=== PATIENT | male | born 1985 | race Two or more races ===

== ENCOUNTER 2018-02-24 22:12 | Emergency (ER) | payer OTHER ==
[~2018-02-24] VITALS: Ht 157.5 cm; Wt 75.4 kg
[2018-02-24] MEDS ORDERED: MORPHINE SULFATE 4 MG/ML, 1ML IVPush PRN (23:00)
[2018-02-24] MEDS ORDERED: FAMOTIDINE 20 MG/2 ML IVP ONE (23:00)
[2018-02-24] MEDS ORDERED: DICYCLOMINE 10 MG/ML, 2ML IM ONE (23:00)
[2018-02-24] MEDS ORDERED: SODIUM CHLORIDE FLUSH 10ML SYR IVF ONE (23:00)
[2018-02-24] MEDS ORDERED: PROMETHAZINE 25 MG/ML, 1ML IM ONE (23:00)
[2018-02-24] MEDS ORDERED: SODIUM CHLORIDE 0.9% 1,000ML IVBOLUS ONE (23:00)
[2018-02-24] MEDS ORDERED: ONDANSETRON 2MG/ML, 2ML IVPush ONE (23:00)
[2018-02-24 23:26] LABS: CULTURE INDICATED? YES; MICROSCOPIC INDICATED
[2018-02-24] MEDS ORDERED: ONDANSETRON 2MG/ML, 2ML ONE (23:29)
[2018-02-24] MEDS ORDERED: DICYCLOMINE 10 MG/ML, 2ML ONE (23:30)
[2018-02-24] MEDS ORDERED: FAMOTIDINE 20 MG/2 ML ONE (23:30)
[2018-02-24] MEDS ORDERED: PROMETHAZINE 25 MG/ML, 1ML ONE (23:30)
[2018-02-24 23:31] LABS: ALANINE AMINOTRANSFERASE 173 U/L (12-78); ALBUMIN 2.5 g/dL (3.4-5.0); ANION GAP 6 mmol/L (5-15); CALCIUM 8.2 mg/dL (8.5-10.1); CHLORIDE 106 mmol/L (98-107)
[2018-02-24 23:33] LABS: ALKALINE PHOSPHATASE 88 U/L (45-117); BILIRUBIN,TOTAL 0.5 mg/dL (0.2-1.0); TOTAL PROTEIN 6.9 g/dL (6.4-8.2)
[2018-02-24 23:41] VITALS: BP 102/67
[2018-02-24 23:43] LABS: MD SCAN; MEAN CORPUSCULAR HEMOGLOBIN 29.3 pg (27.5-34.5); MEAN CORPUSCULAR HGB CONC 34.1 g/dL (33.2-36.2); MEAN CORPUSCULAR VOLUME 85.9 fL (81-97); MEAN PLATELET VOLUME 11.1 fL (7.4-10.4); PLATELET COUNT 230 x10^3/uL (130-400); RED BLOOD COUNT 5.94 x10^6/uL (4.38-5.82); RED CELL DISTRIBUTION WIDTH 13.8 % (9.4-14.8)
[2018-02-24 23:44] LABS: BASOPHILS # (AUTO) 0.03 x10^3/uL (0-0.1); BASOPHILS % (AUTO) 1 % (0-1); EOSINOPHILS # (AUTO) 0.11 x10^3/uL (0-0.4); EOSINOPHILS % (AUTO) 2 % (1-7); LYMPHOCYTES # (AUTO) 1.23 x10^3/uL (1-3.4); LYMPHOCYTES % (AUTO) 18 % (22-44); MONOCYTES # (AUTO) 0.79 x10^3/uL (0.2-0.8); MONOCYTES % (AUTO) 11 % (2-9); NEUTROPHILS # (AUTO) 4.79 x10^3/uL (1.8-6.8); NEUTROPHILS % (AUTO) 69 % (42-75)
[2018-02-24 23:46] LABS: CLOSTRIDIUM DIFFICILE ANTIGEN NEGATIVE; CLOSTRIDIUM DIFFICILE TOXIN NEGATIVE (Negative)
== END 2018-02-25 00:58 | disposition home or self-care (01) ==
LOC: ED 23:13
DX: R11.2 Nausea with vomiting, unspecified (principal); E86.0 Dehydration; R19.7 Diarrhea, unspecified; R10.84 Generalized abdominal pain; R94.5 Abnormal results of liver function studies; R51 Headache
CPT/HCPCS: 36415; 80053; 81001; 83690; 85025; 87086; 87324; 89055; 96361; 96372; 96374; 96375; 99284; J0500; J2405; J2550; J7030; S0028